=== PATIENT | female | born 1955 | race Caucasian/White ===

== ENCOUNTER → 2018-08-05 10:09 | Outpatient (CLI) | payer OTHER, MEDICAID, SELFPAY ==
[2018-08-05 10:29] LABS: Add Manual Diff / Slide Review NO; Basophils Absolute Auto 0 /uL (0-100); Basophils Percent Auto 0.5 % (0-2); Eosinophils Absolute Auto 0 /uL (0-450); Eosinophils Percent Auto 0.6 % (2-4); Lymphocytes Absolute Auto 1200 /uL (1100-4500); Lymphocytes Percent Auto 22.1 % (25-40); Mean Corpuscular HGB Conc 33.3 % (30-36); Mean Corpuscular Hemoglobin 30.4 PG (26-34); Mean Corpuscular Volume 91.3 fL (80-100); Monocytes Absolute Auto 400 /uL (0-900); Monocytes Percent Auto 7.6 % (3-14); Neutrophils Absolute Auto 3900 /uL (1500-7000); Neutrophils Percent Auto 69.2 % (50-75); Platelet Count 277 X10^3/uL (150-400); Red Blood Cell Count 4.59 X10^6/uL (4.0-5.2); Red Cell Distribution Width 13.4 % (11.6-14.8); White Blood Cell Count 5.6 X10^3/uL (4.5-11.0)
[2018-08-05 11:04] LABS: Erythrocyte Sedimentation Rate 19 MM/HR (0-20)
[2018-08-05 11:15] LABS: Uric Acid 3.5 mg/dL (2.5-6.2)
[2018-08-05 11:17] LABS: C-Reactive Protein Quant < 0.5 mg/dL (<1.0); Rheumatoid Factor < 8.6 IU/mL (<12.0)
[2018-08-07 20:00] LABS: ANA Screen, IFA Negative (Negative)
== END ==
PROVIDERS: Family Provider Family Medicine; PCP Family Medicine; Visit Provider Orthopaedic Surgery
DX: M25.562 Pain in left knee (principal)
CPT/HCPCS: 36415; 84550; 85025; 85651; 86038; 86140; 86430

== ENCOUNTER → 2018-08-24 09:46 | Outpatient (CLI) | payer OTHER, MEDICAID, SELFPAY ==
--- NOTE | 2018-08-24 | DI.NM.S_ITS ---
PROCEDURE: NM BONE SCAN WHOLE BODY RADIOPHARMACEUTICAL: 19.2 mCi Tc-99m MDP IV. INDICATIONS: Pain in left knee TECHNIQUE: Delayed whole-body scintigrams were obtained approximately 3-4 hours after intravenous injection of radiotracer. Anterior and posterior views were acquired from vertex to feet. Additional left and right oblique views of the both knees were obtained. COMPARISON: [facility], CT, CT KUB, 08/14/2016, 13:27. [facility] [place], CR, XR KNEE ARTHRITIC SERIES LT, 03/28/2013, 14:28. [facility] [place], CR, XR KNEE ARTHRITIC SERIES LT, 08/05/2018, 8:53. FINDINGS: There is photopenia in the lateral aspect of the left knee, consistent with lateral hemiarthroplasty. There is increased uptake along the prosthesis tibia interface. The comparison x-ray demonstrates lucency underneath the tibial component of the prosthesis. Mild heterogeneous uptake in skull, uncertain clinical significance. No lesions are identified sternum, clavicles, scapulae, ribs, bony pelvis, and visualized shafts of the long bones. There is low level increased uptake in cervical, thoracic and lumbar spine with distribution indistinguishable from degenerative disc and facet disease; early metastasis to spine could be obscured by degenerative changes. There are foci of increased periarticular activity involving shoulders, sternoclavicular joints, elbows, wrists and hands, hips and right foot, compatible with degenerative/arthritic changes. There is normal soft tissue uptake. IMPRESSION: 1. Lateral hemiarthroplasty of the left knee. There is increased uptake along the prosthesis tibia interface. The comparison x-ray demonstrates lucency underneath the tibial component of the prosthesis. The findings are concerning for prosthesis loosening. Dictated by: Chelsey Alicia M.D. on 08/24/2018 at 17:28 Approved by: Chelsey Alicia M.D. on 08/24/2018 at 19:02
== END ==
PROVIDERS: Family Provider Family Medicine; PCP Family Medicine; Visit Provider Orthopaedic Surgery
DX: M25.562 Pain in left knee (principal); Z96.652 Presence of left artificial knee joint
CPT/HCPCS: 78306; A9503

== ENCOUNTER → 2019-03-18 09:01 | Outpatient (CLI) | payer OTHER, MEDICAID, SELFPAY | PROVIDERS: Family Provider Family Medicine; PCP Family Medicine; Visit Provider Nurse Practitioner | DX: R30.0 Dysuria (principal) | CPT/HCPCS: 87077; 87086; 87186 ==

== ENCOUNTER 2019-04-09 05:34 | Emergency (ER) | payer OTHER, MEDICAID, SELFPAY ==
[2019-04-09 06:26] VITALS: BP 180/87; PULSE 89; RESP 18; TEMP 36.4; O2SAT 97; BMI 21.2
--- NOTE | 2019-04-09 06:27 | ED.FEMALEGU ---
HPI - Female Genitourinary General Chief complaint: Urogenital-Female Stated complaint: thinks bladder infection Time Seen by Provider: 04/09/19 05:35 Source: patient and family Mode of arrival: Ambulatory Limitations: no limitations History of Present Illness HPI Narrative: 63F smoker with frequent UTI presents with a chief complain of urinary frequency, urgency and dysuria. She denies any fever chills nor nausea or vomiting. She recently had a course of Cipro and had been better for about 2 weeks but symptoms began a few days ago. MD Complaint: dysuria Onset (ago): day(s) Female Urogenital Radiation: Suprapubic Severity: moderate Quality: Aching Urinary symptoms: Difficulty Urinating and Dysuria Patient : No Associated symptoms: denies other symptoms Related Data Home Medications Medication Instructions Recorded Confirmed acetaminophen PO 03/18/19 03/18/19 clonazepam 1 mg tablet 1 mg PO BID 03/18/19 03/18/19 cyclobenzaprine PO 03/18/19 03/18/19 omeprazole PO 03/18/19 03/18/19 Previous Rx's Medication Instructions Recorded ciprofloxacin HCl 500 mg PO BID #14 tab 04/09/19 Allergies Allergy/AdvReac Type Severity Reaction Status Date / Time morphine Allergy Intermediate hives, Verified 03/18/19 08:55 vomiting Sulfa (Sulfonamide Allergy Intermediate hives Verified 03/18/19 08:55 Antibiotics) Penicillins Allergy Unknown unkown Verified 03/18/19 08:55 Review of Systems Constitutional Constitutional: Denies chills, Denies fatigue, Denies fever(s), Denies frequent falls, Denies lethargy and Denies weakness Eyes Eyes: Denies change in vision, Denies eye discharge, Denies irritation and Denies loss of vision ENT Ears, Nose, Mouth, and Throat: Denies change in voice, Denies dizziness, Denies neck pain, Denies sore throat and Denies throat swelling Cardiovascular Cardiovascular: Denies chest pain, Denies irregular heart rhythm, Denies lightheadedness, Denies palpitations, Denies dyspnea, Denies dyspnea on exertion and Denies orthopnea Respiratory Respiratory: Denies cough, Denies dyspnea, Denies dyspnea on exertion and Denies wheezing Gastrointestinal Gastrointestinal: Denies abdominal pain, Denies change in bowel habits, Denies diarrhea, Denies nausea and Denies vomiting Genitourinary Genitourinary: Denies hematuria, Denies flank pain, Denies urinary incontinence and Reports urinary urgency Musculoskeletal Musculoskeletal: Denies back pain, Denies muscle weakness, Denies neck pain, Denies numbness and Denies tingling Integumentary/Breasts Skin/Breast: Denies pruritus, Denies erythema, Denies rash and Denies wounds Neurologic Neurologic: Denies behavioral changes, Denies confusion, Denies dizziness, Denies frequent falls, Denies loss of vision, Denies numbness, Denies tingling and Denies weakness Psychiatric Psychiatric: Denies anxiety, Denies behavioral changes, Denies confusion, Denies depression, Denies homicidal ideation and Denies suicidal ideation Endocrine Endocrine: Denies fatigue, Denies flushing and Denies palpitations Hematologic/Lymphatic Hematologic/Lymphatic: Denies easy bruising Allergic/Immunologic Allergic/Immunologic: Denies urticaria, Denies throat swelling and Denies wheezing Exam Narrative Exam Narrative: GEN: AOx3 and in mild distress EYES: Pupils are equal, round, and reactive to light and accommodation. Extraoccular muscles are intact bilaterally. There is no subconjunctival hemorrhage or exudate. CHEST: Lungs are clear to auscultation bilaterally and free of wheezes, rales, or rhonchi. Heart rate is regular rhythm, there are no murmurs, clicks, rubs, or gallops. There is no chest wall tenderness. ABD: Abdomen is soft and nontender. There is no guarding or rebound. Bowel sounds are normal in all 4 quadrants. There is no mass or organomegaly. EXT: Full painless ROM of all extremities with no loss of sensation or strength. SKIN: Warm, pink, and dry. No erythema or rash Initial Vital Signs Initial Vital Signs: Vital Signs Temperature 97.5 F L 04/09/19 06:26 Pulse Rate 89 04/09/19 06:26 Respiratory Rate 18 04/09/19 06:26 Blood Pressure 180/87 H 04/09/19 06:26 Pulse Oximetry 97 04/09/19 06:26 Course Orders Ordered: ED Orders 04/09/19 06:15 Urine Microscopic Stat Discontinued Medications Levofloxacin (Levaquin) 500 mg PO NOW ONE Stop: 04/09/19 06:38 Vital Signs Vital signs: Vital Signs - 8 hr 04/09/19 06:26 Temperature 97.5 F L Pulse Rate 89 Respiratory Rate 18 Blood Pressure 180/87 H Pulse Oximetry 97 MDM - Female Genitourinary Lab Data Labs: Urine Dip Bedside Urine Glucose Negative Bedside Urine Bilirubin - Negative Bedside Urine Ketone - Negative Urine Specific [place] 1.010 Bedside Urine Occult Blood + Bedside Urine pH 6.5 Bedside Urine Protein +/- 15 Bedside Urine Urobilinogen - Negative Bedside Urine Nitrite - Negative Bedside Urine Leukocytes +++ 500 Esterase Discharge Plan Departure Patient Disposition: Home Clinical Impression: UTI (urinary tract infection) Qualifiers: Urinary tract infection type: acute cystitis Hematuria presence: without hematuria Qualified Code(s): N30.00 - Acute cystitis without hematuria Instructions: DI for Urinary Tract Infection (UTI) Activity Restrictions/Additional Instructions: *You have been diagnosed with [acute urinary tract infection] *What to do: *Take medications as directed *Follow up with your primary care provider in 2-3 days, call for an appointment. Let them know you were seen in the Emergency Department and that we ask that you be seen in follow up *Return to ER if you should have any new, worsening or concerning symptoms, such as [ ] Prescriptions: New ciprofloxacin HCl 500 mg tablet 500 mg PO BID Qty: 14 RF: 0 No Action clonazepam 1 mg tablet 1 mg PO BID RF: 0 cyclobenzaprine PO RF: 0 omeprazole PO RF: 0 acetaminophen PO RF: 0 Referrals: Rishi Cote MD [Primary Care Provider] -
[2019-04-09 06:30] VITALS: BP 180/87; PULSE 89; RESP 18; TEMP 36.4; O2SAT 97; BMI 21.2
[2019-04-09 06:33] LABS: Bacteria Urine None Seen
[2019-04-09] MEDS: levoFLOXacin 250 MG TABLET 500 MG PO (07:03)
[2019-04-09 07:07] LABS: RBC Urine 10-30/HPF (0-5/HPF); WBC Urine 30-100/HPF (0-5/HPF)
[2019-04-09 07:08] LABS: Culture Indicated Urine Cult Not Indicated; Renal Epithelial Cells Urine 0-1/HPF (0-1/HPF); Squamous Epithelial Cell Urine 5-10 /HPF (0-5/HPF); Transitional Epi Cells Urine 1-5/HPF (0-5/HPF)
== END 2019-04-09 07:20 | disposition home or self-care (01) ==
PROVIDERS: Emergency Provider Emergency Medicine; Family Provider Family Medicine; PCP Family Medicine
DX: N30.90 Cystitis, unspecified without hematuria (principal)
CPT/HCPCS: 81003; 81015; 99282; 99283

== ENCOUNTER → 2025-01-02 09:47 | Outpatient (CLI) | payer OTHER, SELFPAY ==
--- NOTE | 2025-01-02 09:51 | DI.US.S_ITS ---
PROCEDURE: US THYROID INDICATIONS: Screening, nodule TECHNIQUE: Real-time scanning was performed of the thyroid gland, with image documentation. COMPARISON: None. FINDINGS: Thyroid: Right lobe is surgically absent.. Left lobe measures 2.7 x 1.1 x 0.8 cm. Isthmus is 0.4 cm thick. Echotexture is heterogeneous and margin is slightly lobulated. Residual thyroid tissue is highly vascular. Nodule number: 1 Location: Along the lateral margin of the left mid thyroid, probably extrathyroidal. Size: 0.6 by 0.7 x 0.5 cm. Composition: Solid Echogenicity: Mildly hypoechoic. Morphology is similar to right neck lymph nodes.. Shape: wider than tall. Margins: Smooth Echogenic foci: No Total points: Not applicable ACR TI-RADS category: Not applicable given potentially non thyroid nodule. No suspicious findings in the right thyroid bed. There are several small lateral compartment lymph nodes in the right neck. No visible lateral compartment lymph nodes in the left neck. IMPRESSION: Surgically absent right thyroid. Diminutive, heterogeneous and hypervascular left thyroid lobe. Correlate with labs to exclude thyroiditis. Probable medial compartment small lymph node immediately adjacent to the left thyroid gland as described above. Other similar size and echotexture lymph nodes are seen in the right lateral neck. ACR TI-RADS definitions and recommendations: TI-RADS 1 (benign): 0 points. FNA not needed. TI-RADS 2 (not suspicious): 2 points. FNA not needed. TI-RADS 3: 3 points. * FNA if 2.5 cm or larger, follow up if 1.5 cm or larger (at 1, 3, and 5 years). TI-RADS 4: 4-6 points. * FNA if 1.5 cm or larger, follow up if 1 cm or larger (at 1, 2, 3, and 5 years). TI-RADS 5: 7 points or more. * FNA if 1 cm or larger, follow up if 0.5 cm or larger (every year for 5 years). Dictated by: Lety Stoddard M.D. on 01/03/2025 at 12:10 Approved by: Lety Stoddard M.D. on 01/03/2025 at 12:20
--- NOTE | 2025-01-02 10:55 | DI.MG.S_ITS ---
MM screening mammo BI: 01/02/2025. BI-RADS: 1 CLINICAL: 69-year old female for bilateral screening mammogram. Tyrer-Cuzick lifetime risk of 3.0%. No personal or first-degree family history of breast cancer. Current reported family history of breast cancer: maternal grandmother. PRIOR EXAMS 09/15/2021, 10/02/2015. MAMMOGRAPHY TECHNIQUE: 2D and 3D (tomosynthesis) digital mammographic views obtained, with additional images as needed for full coverage. Current study was also evaluated with a Computer Aided Detection (CAD) system. DENSITY C. The breasts are heterogeneously dense, which may obscure small masses. MAMMOGRAPHY FINDINGS Bilateral: No suspicious mass, asymmetry, microcalcification, or other abnormality seen. IMPRESSION: * No evidence of malignancy. RECOMMENDATIONS Bilateral * Annual screening mammography. OVERALL ASSESSMENT CATEGORY BI-RADS-1: Negative. The [employer] recommends annual screening mammography beginning at age 40 for women with average risk of breast cancer. ELECTRONICALLY SIGNED: Isabel Gee M.D. on 01/02/2025 at 05:43:39 PM PT Interpreting Station ID: [id number]
--- NOTE | 2025-01-02 11:17 | DI.RAD.S_ITS ---
PROCEDURE: XR DEXA AXIAL SKELETON INDICATIONS: SCREENING COMPARISON: None. FINDINGS: Lumbar Spine: Bone mineral density 0.708 g/cm2, T score -3.1, baseline. Left Femoral Neck: Bone mineral density 0.536 g/cm2, T score -2.8. Left Hip: Bone mineral density 0.715 g/cm2, T score -1.9, baseline. Fracture Risk Calculation (when applicable): Not reported due to osteoporosis diagnosis. (T score greater or equal to -1.0 to: NORMAL) (T score from -1.1 to -2.4: OSTEOPENIA) (T score less than or equal to -2.5: OSTEOPOROSIS) IMPRESSION: Osteoporosis. Follow-up guidelines as follows: Osteoporosis: Consider a repeat DEXA and Vertebral Fracture Assessment (VFA) exam in 2 years or sooner if medically necessary, to reassess this patient's status. Osteopenia: Consider a repeat DEXA in 2-3 years to reassess this patient's status, or if there is a new clinical indication. Normal: Consider a repeat DEXA in 5 years or sooner, or if there is a new clinical indication. All treatment decisions require clinical judgment and consideration of individual patient factors, including patient preferences, comorbidities, previous drug use, risk factors not captured in the FRAX model (e.g., frailty, falls, vitamin D deficiency, increased bone turnover, interval significant decline in bone density ) and possible under- or over-estimation of fracture risk by FRAX. In addition, the NOF Guide recommends that FDA-approved medical therapies be considered in postmenopausal women and men age >= 50 years with a: * Hip or vertebral (clinical or morphometric) fracture * T-score of <=-2.5 at the spine or hip * Ten-year fracture probability by FRAX of >= 3% for hip fracture or >=20% for major osteoporotic fracture. Dictated by: Lenin Guillen M.D. on 01/02/2025 at 14:19 Approved by: Lenin Guillen M.D. on 01/02/2025 at 14:19
== END ==
PROVIDERS: Referring Provider Family Medicine; Visit Provider Family Medicine
DX: Z12.31 Encounter for screening mammogram for malignant neoplasm of breast (principal); Z13.820 Encounter for screening for osteoporosis; M81.0 Age-related osteoporosis without current pathological fracture; R92.333 Mammographic heterogeneous density, bilateral breasts; E04.1 Nontoxic single thyroid nodule; Z90.89 Acquired absence of other organs; Z98.890 Other specified postprocedural states; Z80.3 Family history of malignant neoplasm of breast
CPT/HCPCS: 76536; 77063; 77067; 77080

== ENCOUNTER → 2025-01-05 17:18 | Outpatient (CLI) | payer OTHER, SELFPAY ==
--- NOTE | 2025-01-05 17:21 | DI.RAD.S_ITS ---
PROCEDURE: XR LUMBAR SPINE MIN 4V INDICATIONS: Evaluate for OA rule out pathologic fracture with osteoporos TECHNIQUE: 5 views of the lumbar spine were acquired, including bilateral oblique views. COMPARISON: None. FINDINGS AND IMPRESSION: Vertebral body heights are well maintained. [id number] multilevel spondylosis, with facet arthropathy and disc space height loss at multiple levels. On oblique views, no definite pars defects are seen, although evaluation is limited by overlapping bowel gas. Sacroiliac and hip arthritic changes also present. Large colonic fecal and gas burden. Vascular calcifications. If there is high concern for further derangement, consider MRI evaluation. Dictated by: Dean Adhikari M.D. on 01/05/2025 at 17:55 Approved by: Dean Adhikari M.D. on 01/05/2025 at 17:56
== END ==
PROVIDERS: Referring Provider Chiropractor; Visit Provider Chiropractor
DX: M47.816 Spondylosis without myelopathy or radiculopathy, lumbar region (principal); I70.90 Unspecified atherosclerosis; G89.29 Other chronic pain; M54.50 Low back pain, unspecified
CPT/HCPCS: 72110

== ENCOUNTER 2025-01-06 11:23 | Emergency (ER) | payer OTHER, SELFPAY ==
[2025-01-06 11:27] VITALS: BP 198/90; PULSE 81; RESP 20; O2SAT 98; BMI 21.4
--- NOTE | 2025-01-06 11:35 | DI.CT.S_ITS ---
PROCEDURE: CT ABDOMEN PELVIS WO CON INDICATIONS: severe low back and BL hip pain; please comment lumbar spine TECHNIQUE: Axial sections were acquired from the lung bases to the pubic symphysis. Coronal and sagittal reformats were performed. For radiation dose reduction, the following was used: automated exposure control, adjustment of mA and/or kV according to patient size. COMPARISON: None. FINDINGS: Image quality: Diagnostic. Lower Chest: No significant findings. URINARY: Right Kidney: Punctate right renal stones. No hydronephrosis. Right Ureter: No hydroureter. Left Kidney: A few renal stones the largest measuring 4 mm. No hydronephrosis Left Ureter: No hydroureter. Bladder: Normal wall thickness. No stones. ABDOMEN: Liver: No contour-deforming solid mass. Gallbladder: The gallbladder surgically absent. Biliary ducts: No biliary dilation. Pancreas: No ductal dilation. Spleen: Size is within normal limits. Adrenal Glands: No adrenal nodules. Stomach and Bowel: Long segment wall thickening of the transverse, descending, and sigmoid colon. No evidence of obstruction. Mild surrounding inflammatory changes. Few scattered diverticula. Normal appendix. Peritoneum: No abnormal intraperitoneal fluid. No free air. Ventral Wall: No hernia. Abdominal Nodes: No enlarged retroperitoneal or mesenteric lymph nodes. Vessels: Aorta and inferior vena cava are normal in size. PELVIS: Pelvic Organs: Unremarkable. Pelvic Nodes: Unremarkable. Miscellaneous: Right fat containing inguinal hernia. Bones: Unremarkable. No bony spinal canal foraminal narrowing. canal foraminal narrowing. Unremarkable appearance of the bilateral hips IMPRESSION: 1. Normal appearance of the lumbar spine and hips. 2. Bilateral nonobstructive nephrolithiasis. 3. Long segment thickening of the colon with surrounding inflammatory changes. Correlate for colitis Dictated by: Ronald Leigh M.D. on 01/06/2025 at 11:08 Approved by: Ronald Leigh M.D. on 01/06/2025 at 11:14
--- NOTE | 2025-01-06 11:41 | ED.BACK ---
HPI - Back Pain/Injury <Alina Daniels PA-C - Last Filed: 01/06/25 14:21> General Chief Complaint: Back Pain/Injury Stated Complaint: back pain Time Seen by Provider: 01/06/25 11:34 Source: patient History of Present Illness HPI Narrative: Ms. Gamino is a pleasant 69-year-old female with a past medical history of hypertension, HTN, osteoporosis, PTSD, PUD, who presents to the emergency department for acute on chronic back pain. Patient states she has been suffering with low back pain since May of this year however just yesterday the pain became 10/10 and radiating to bilateral hips. She denies any trauma or injury but reports that she was working in her flower beds and bending, pulling weeds, etc. She went to the walk-in clinic yesterday and had x-rays performed and was treated with Flexeril, the Flexeril is starting to help slightly. She does not take any blood thinners. She denies any direct trauma to her back. Reports she occasionally has pain radiating to the lateral thighs, no numbness tingling weakness of the lower extremities. No fevers or chills. No abdominal pain or dysuria. No flank pain. No bowel or bladder incontinence. No saddle anesthesia. Related Data Home Medications ?Medication ?Instructions ?Recorded ?Confirmed acetaminophen [Tylenol 8 Hour] PO 03/18/19 06/04/19 clonazepam 1 mg tablet 1 mg PO BID 03/18/19 06/04/19 cyclobenzaprine PO 03/18/19 06/04/19 omeprazole PO 03/18/19 06/04/19 bupropion HCl 150 mg 24 hr tablet, 150 mg PO QAM 06/04/19 06/04/19 extended release lisinopril 10 mg tablet 10 mg PO DAILY 06/04/19 06/04/19 clonazepam 1 mg tablet mg PO 07/03/24 07/03/24 levothyroxine 75 mcg tablet mcg PO 07/03/24 07/03/24 mirtazapine 15 mg tablet mg PO 07/03/24 07/03/24 omeprazole 20 mg capsule,delayed mg PO 07/03/24 07/03/24 release rosuvastatin 5 mg tablet mg PO DAILY 07/03/24 07/03/24 sertraline 100 mg tablet mg PO DAILY 07/03/24 07/03/24 Previous Rx's ?Medication ?Instructions ?Recorded lidocaine 4 % topical patch 1 patch topical DAILY PRN pain #10 07/03/24 ea methocarbamol 500 mg tablet 500 mg PO TID PRN muscle spasm #20 07/03/24 tabs cyclobenzaprine 10 mg tablet 10 mg PO TID PRN muscle spasm #14 01/05/25 tabs cephalexin 500 mg capsule 500 mg PO BID 7 days #14 caps 01/06/25 oxycodone-acetaminophen 5 mg-325 1 tab PO Q4-6H PRN pain #12 tabs 01/06/25 mg tablet prednisone 20 mg tablet 40 mg (2 x 20 mg) PO DAILY 5 days 01/06/25 #10 tabs Allergies Allergy/AdvReac Type Severity Reaction Status Date / Time Iodinated Contrast Media Allergy Intermediate Verified 01/06/25 11:28 morphine Allergy Intermediate hives, Verified 01/06/25 11:28 vomiting Sulfa (Sulfonamide Allergy Intermediate hives Verified 01/06/25 11:28 Antibiotics) Penicillins Allergy Unknown unkown Verified 01/06/25 11:28 codeine AdvReac Unknown Verified 01/06/25 11:28 iodine AdvReac Unknown Verified 01/06/25 11:28 shellfish derived AdvReac Unknown Verified 01/06/25 11:28 Review of Systems <Alnia Daniels PA-C - Last Filed: 01/06/25 14:21> Review of Systems ROS Unobtainable: All systems reviewed & are unremarkable except as noted in HPI and below Patient History <Alina Daniels PA-C - Last Filed: 01/06/25 14:21> Social History Smoking Status: Current some day smoker Smoking Status: Current some day smoker tobacco type: cigarettes alcohol intake frequency: 0-2 drinks per day Exam <Alina Daniels PA-C - Last Filed: 01/06/25 14:21> Narrative Exam Narrative: GENERAL: 69 year old patient appears stated age. Well-developed patient, in no acute distress. HEAD: Atraumatic. Normocephalic. NECK: Trachea midline. Cervical ROM intact. No midline cervical tenderness. CARDIOVASCULAR: Regular rate and rhythm. RESPIRATORY: ?Nonlabored respirations. ?Speaking in clear, full sentences. ?Clear to auscultation. Breath sounds equal bilaterally. No wheezes, rales, or rhonchi. ? GASTROINTESTINAL: Abdomen soft, non-tender, nondistended. BS present. EXTREMITIES: No lower extremity edema. Sensation intact to light touch throughout the upper and lower extremities. Palpable PT pulses. BACK: No midline spinal tenderness. Subjective pain in the bilateral SI joint region and paralumbar spinal region. No midline deformities. Patient is able to ambulate independently without difficulty. Positive left-sided straight leg raise. NEURO: AOx3. ?Clear speech. ?Moves all 4 extremities appropriately. Sensation intact to light touch throughout the lower extremities including groin. SKIN: No rash or erythema of visible areas Initial Vital Signs Initial Vital Signs: Vital Signs Pulse Rate 81 01/06/25 11:27 Respiratory Rate 20 01/06/25 11:27 Blood Pressure 198/90 H 01/06/25 11:27 Pulse Oximetry 98 01/06/25 11:27 Oxygen Delivery Method Room Air 01/06/25 11:27 <Rossi Haq MD - Last Filed: 01/06/25 16:10> Initial Vital Signs Initial Vital Signs: Vital Signs Pulse Rate 81 01/06/25 11:27 Respiratory Rate 20 01/06/25 11:27 Blood Pressure 198/90 H 01/06/25 11:27 Pulse Oximetry 98 01/06/25 11:27 Oxygen Delivery Method Room Air 01/06/25 11:27 Course <Alina Daniels PA-C - Last Filed: 01/06/25 14:21> Orders Ordered: ED Orders 01/06/25 11:35 CT abdomen pelvis wo con Stat 01/06/25 12:55 Urine Culture Stat Urine Microscopic Stat Discontinued Medications Diphenhydramine HCl (Diphenhydramine 25 Mg Tablet) 50 mg PO NOW ONE Stop: 01/06/25 12:07 Last Admin: 01/06/25 12:52 Dose: 50 mg Documented By: ELIANA Lidocaine (Lidocaine 5% Patch) 1 each TOP NOW ONE Stop: 01/06/25 12:07 Last Admin: 01/06/25 12:53 Dose: 1 each Documented By: ELIANA Oxycodone/Acetaminophen (Oxycodone/Acetaminophen 5/325 Tablet) 1 tab PO NOW ONE Stop: 01/06/25 12:07 Last Admin: 01/06/25 12:52 Dose: 1 tab Documented By: ELIANA Vital Signs Vital signs: Vital Signs - 8 hr 01/06/25 11:27 01/06/25 14:01 Temperature 98.4 F Pulse Rate 81 70 Respiratory Rate 20 16 Blood Pressure 198/90 H 195/93 H Pulse Oximetry 98 96 Oxygen Delivery Method Room Air Room Air <Rossi Haq MD - Last Filed: 01/06/25 16:10> Orders Ordered: ED Orders 01/06/25 11:35 CT abdomen pelvis wo con Stat 01/06/25 12:55 Urine Culture Stat Urine Microscopic Stat Discontinued Medications Diphenhydramine HCl (Diphenhydramine 25 Mg Tablet) 50 mg PO NOW ONE Stop: 01/06/25 12:07 Last Admin: 01/06/25 12:52 Dose: 50 mg Documented By: ELIANA Lidocaine (Lidocaine 5% Patch) 1 each TOP NOW ONE Stop: 01/06/25 12:07 Last Admin: 01/06/25 12:53 Dose: 1 each Documented By: ELIANA Oxycodone/Acetaminophen (Oxycodone/Acetaminophen 5/325 Tablet) 1 tab PO NOW ONE Stop: 01/06/25 12:07 Last Admin: 01/06/25 12:52 Dose: 1 tab Documented By: ELIANA Vital Signs Vital signs: Vital Signs - 8 hr 01/06/25 11:27 01/06/25 14:01 Temperature 98.4 F Pulse Rate 81 70 Respiratory Rate 20 16 Blood Pressure 198/90 H 195/93 H Pulse Oximetry 98 96 Oxygen Delivery Method Room Air Room Air MDM - Back Pain/Injury <Alina Daniels PA-C - Last Filed: 01/06/25 14:21> Medical Records Attestation: I reviewed the patient's medical records. Lab Data Labs: Lab Results 01/06/25 Range/Units 12:55 Urine RBC 0-1/hpf D (0-5/HPF) Urine WBC 1-5/hpf (0-5/HPF) Ur Squamous Epith Cells None seen (0-5/HPF) Ur Transition Epith Cell 0-1/hpf (0-5/HPF) Urine Bacteria None seen (None) Urine Mucus 1+ H (Negative) Ur Culture Indicated? Specimen cultured Micro UA Comment Vol Urine Centrifuged 10ml (spun) Urine Dip Bedside Urine Glucose Negative Bedside Urine Bilirubin - Negative Bedside Urine Ketone - Negative Urine Specific [place] 1.010 Bedside Urine Occult Blood + Bedside Urine pH 6.5 Bedside Urine Protein - Negative Bedside Urine Urobilinogen - Negative Bedside Urine Nitrite - Negative Bedside Urine Leukocytes ++ [address] scan - abdomen/pelvis: Radiologist's Impression: PROCEDURE: CT ABDOMEN PELVIS WO CON INDICATIONS: severe low back and BL hip pain; please comment lumbar spine TECHNIQUE: Axial sections were acquired from the lung bases to the pubic symphysis. Coronal and sagittal reformats were performed. For radiation dose reduction, the following was used: automated exposure control, adjustment of mA and/or kV according to patient size. COMPARISON: None. FINDINGS: Image quality: Diagnostic. Lower Chest: No significant findings. URINARY: Right Kidney: Punctate right renal stones. No hydronephrosis. Right Ureter: No hydroureter. Left Kidney: A few renal stones the largest measuring 4 mm. No hydronephrosis Left Ureter: No hydroureter. Bladder: Normal wall thickness. No stones. ABDOMEN: Liver: No contour-deforming solid mass. Gallbladder: The gallbladder surgically absent. Biliary ducts: No biliary dilation. Pancreas: No ductal dilation. Spleen: Size is within normal limits. Adrenal Glands: No adrenal nodules. Stomach and Bowel: Long segment wall thickening of the transverse, descending, and sigmoid colon. No evidence of obstruction. Mild surrounding inflammatory changes. Few scattered diverticula. Normal appendix. Peritoneum: No abnormal intraperitoneal fluid. No free air. Ventral Wall: No hernia. Abdominal Nodes: No enlarged retroperitoneal or mesenteric lymph nodes. Vessels: Aorta and inferior vena cava are normal in size. PELVIS: Pelvic Organs: Unremarkable. Pelvic Nodes: Unremarkable. Miscellaneous: Right fat containing inguinal hernia. Bones: Unremarkable. No bony spinal canal foraminal narrowing. canal foraminal narrowing. Unremarkable appearance of the bilateral hips IMPRESSION: 1. Normal appearance of the lumbar spine and hips. 2. Bilateral nonobstructive nephrolithiasis. 3. Long segment thickening of the colon with surrounding inflammatory changes. Correlate for colitis Dictated by: Ronald Leigh M.D. on 01/06/2025 at 11:08 Approved by: Ronald Leigh M.D. on 01/06/2025 at 11:14 [facility] Narrative Medical decision making narrative: 69-year-old female with a past medical history of hypertension, HTN, osteoporosis, PTSD, PUD, who presents to the emergency department for acute on chronic back pain. Differential diagnosis includes is not limited to acute on chronic pain, lumbar spondylosis, arthritis, UTI, stenosis, etc. On exam patient is in no acute distress, nontoxic appearing, vital signs within normal limits except for elevated blood pressure, patient states that she does have white coat hypertension. She is having pain across the lumbar spine spreading into the hips. Positive left-sided straight leg raise. Lower extremities are neurovascularly intact, no bowel or bladder incontinence, no saddle anesthesia, no direct trauma, no fevers. After shared decision-making with the attending physician, we will obtain CT abdomen and pelvis without contrast. Patient reports that she can not have NSAIDs, Tylenol is not working, she is allergic to morphine but she can tolerate oxycodone/hydrocodone with 2 Benadryl. We will treat with that regimen in addition to Lidoderm. She would like to hold off on steroids for now. CT reveals normal appearance of lumbar spine and hips, bilateral nonobstructive nephrolithiasis, and long segment thickening of the colon with surrounding inflammatory changes, correlate for colitis. Urinalysis reveals small amount of WBCs. Specimen was cultured, patient denies current symptoms would feel most comfortable with script of antibiotics going to her pharmacy incase culture is positive because she does have a history of recurrent UTIs. At this time she has not experiencing any abdominal pain, tenderness, abnormal bowel movements painful bowel movements fevers chills or flu-like symptoms. Do not suspect bacterial colitis however given inflammation we will treat with prednisone for both possible lumbar radiculopathy in addition to the colitis. Recommended supportive care including Tylenol, heat therapy, gentle movement in addition I did send a short course of oxycodone-acetaminophen to her pharmacy, we discussed risks of narcotics and I recommended using a stool softener. Discussed follow up with primary care doctor for further evaluation and management of low back pain including but not limited to physical therapy, referral to spine surgery, etc.. Discussed strict ED return precautions. Patient and her daughter verbalized understanding of all information or happy with this plan. She is ambulatory and stable for discharge home, pain improved. I did also discuss with the patient her daughter the importance of daily blood pressure monitoring given her elevated blood pressure today, and follow up with PCP for blood pressure recheck. She is asymptomatic at this time. <Rossi Haq MD - Last Filed: 01/06/25 16:10> Lab Data Labs: Lab Results 01/06/25 Range/Units 12:55 Urine RBC 0-1/hpf D (0-5/HPF) Urine WBC 1-5/hpf (0-5/HPF) Ur Squamous Epith Cells None seen (0-5/HPF) Ur Transition Epith Cell 0-1/hpf (0-5/HPF) Urine Bacteria None seen (None) Urine Mucus 1+ H (Negative) Ur Culture Indicated? Specimen cultured Micro UA Comment Vol Urine Centrifuged 10ml (spun) Urine Dip Bedside Urine Glucose Negative Bedside Urine Bilirubin - Negative Bedside Urine Ketone - Negative Urine Specific [place] 1.010 Bedside Urine Occult Blood + Bedside Urine pH 6.5 Bedside Urine Protein - Negative Bedside Urine Urobilinogen - Negative Bedside Urine Nitrite - Negative Bedside Urine Leukocytes ++ 125 Esterase Discharge Plan Departure Patient Disposition: Home Clinical Impression: Lumbar spondylosis, Arthritis of sacroiliac joint, Bilateral hip joint arthritis, Colitis Instructions: DI for Low Back Pain, DI for Colitis Activity Restrictions/Additional Instructions: Dear Hanny, Thank you for coming to the emergency department. Today you were evaluated for low back pain radiating into the hips. We discussed her x-ray from yesterday which revealed multiple areas of arthritis and degenerative changes. Your CT scan today also revealed some inflammation of your colon. Your urine test did reveal some possible early signs of infection, urine culture has been sent and you will be called with those results if they are positive. In the meantime, you have been prescribed a course of antibiotics. Prednisone as a steroid to help reduce inflammation in both your back and also your colon. Please take this medication with breakfast. You have also been prescribed oxycodone-acetaminophen which is an opiate pain medication. Please be aware that this medication can cause multiple side effects including constipation so I would like you to take MiraLax or another stool softener while using this pain medicine. Please rest, perform light movement and avoid strenuous exercise, use heat therapy and Tylenol to help with your low back. You have been prescribed a short course of narcotic medications. These are potentially dangerous and addictive medications that should be used carefully. While on these medications you cannot drive or operate heavy machinery. Additionally, you cannot sign legal documents or perform any duties such as this. Many people get constipated on narcotic medications so it would be advisable to discuss stool softeners with the pharmacist when you strip picker your prescription. Please understand that we cannot provide further refills of narcotics or controlled substances through the ED and your pain management will need to be through your Primary Care Provider Please follow up with your primary care doctor within the next 2-3 days for ER follow-up. (If you do not have a PCP you can call [phone]. ?to schedule an appointment with an [facility] Primary Care Provider) IF YOU DEVELOP ANY NEW OR WORSENING SYMPTOMS, RETURN TO THE ER! Please read the attached instructions, they highlight more specific treatments and interventions for you at home. Thank you for letting me participate in your care, Alina Daniels PA-C Prescriptions: New prednisone 20 mg tablet 40 mg PO DAILY 5 Days Qty: 10 0RF oxycodone-acetaminophen 5-325 mg tablet 1 tab PO Q4-6H PRN (Reason: pain) Qty: 12 0RF cephalexin 500 mg capsule 500 mg PO BID 7 Days Qty: 14 0RF No Action lisinopril 10 mg tablet 10 mg PO DAILY bupropion HCl 150 mg tablet extended release 24 hr 150 mg PO QAM cyclobenzaprine 10 mg tablet 10 mg PO TID PRN (Reason: muscle spasm) Qty: 14 0RF clonazepam 1 mg tablet 1 mg PO BID cyclobenzaprine PO omeprazole PO acetaminophen [Tylenol 8 Hour] PO omeprazole 20 mg capsule,delayed release(DR/EC) PO clonazepam 1 mg tablet PO Patient Comments: [NO ORIGINAL SIG] rosuvastatin 5 mg tablet PO DAILY levothyroxine 75 mcg tablet PO Patient Comments: [NO ORIGINAL SIG] mirtazapine 15 mg tablet PO Patient Comments: [NO ORIGINAL SIG] sertraline 100 mg tablet PO DAILY methocarbamol 500 mg tablet 500 mg PO TID PRN (Reason: muscle spasm) Qty: 20 0RF lidocaine 4 % adhesive patch,medicated 1 patch topical DAILY PRN (Reason: pain) Qty: 10 0RF Referrals: Miscellaneous,Doctor, [Primary Care Provider, Medical] Stand Alone Forms: Patient Portal/API ED Sign-out <Rossi Haq MD - Last Filed: 01/06/25 16:10> Cosign ED Attending Cosjlature Attestation: I was immediately available in the department for consultation throughout this patient's visit. Rossi Haq MD
[2025-01-06] MEDS: diphenhydrAMINE 25 MG TABLET 50 MG PO (12:52)
[2025-01-06] MEDS: OXYCODONE/ACETAMINOPHEN 5/325 TABLET 1 TAB PO (12:52)
[2025-01-06] MEDS: LIDOCAINE 5% PATCH 1 EACH TOP (12:53)
[2025-01-06 13:31] LABS: Culture Indicated Urine Specimen Cultured
[2025-01-06 14:01] VITALS: BP 195/93; PULSE 70; RESP 16; TEMP 36.9; O2SAT 96
== END 2025-01-06 14:05 | disposition home or self-care (01) ==
PROVIDERS: Emergency Provider Physician Assistant
DX: M47.816 Spondylosis without myelopathy or radiculopathy, lumbar region (principal); K52.9 Noninfective gastroenteritis and colitis, unspecified; M16.0 Bilateral primary osteoarthritis of hip; M46.1 Sacroiliitis, not elsewhere classified
CPT/HCPCS: 74176; 81003; 81015; 87086; 99283; 99284

== ENCOUNTER → 2025-03-14 08:18 | Outpatient (CLI) | payer OTHER, SELFPAY ==
[2025-03-14 09:09] LABS: Influenza A - CEPHEID Flu A NEGATIVE (NEGATIVE); Influenza B - CEPHEID Flu B NEGATIVE (NEGATIVE)
[2025-03-14 09:10] LABS: COVID-19 CEPHEID 4-PLEX PCR Negative (Negative)
== END ==
PROVIDERS: Visit Provider Nurse Practitioner Family
DX: J02.9 Acute pharyngitis, unspecified (principal)
CPT/HCPCS: 87637

== ENCOUNTER → 2025-03-14 08:36 | Outpatient (CLI) | payer OTHER, SELFPAY ==
--- NOTE | 2025-03-14 08:37 | DI.RAD.S_ITS ---
PROCEDURE: XR CHEST 2V INDICATIONS: Cough TECHNIQUE: 2 views of the chest were acquired. COMPARISON: None. FINDINGS: Extensive costochondral calcifications partially limit radiographic detail of the lungs. Mild bilateral perihilar and lower lobe peribronchial thickening, some of which may be related expiratory result; however, bronchitis, viral infection, asthma or other process should be considered. Tear cardiopericardial silhouette and pulmonary vasculature within normal limits. No pneumothorax, no pleural effusion, no lobar consolidation. IMPRESSION: Peribronchial thickening as discussed above. If symptoms persist or worsen, or there is high clinical suspicion of thoracic abnormality, CT chest could be performed. Dictated by: Ch[place] Ang M.D. on 03/14/2025 at 9:19 Approved by: Ch[place] Ang M.D. on 03/14/2025 at 9:21
== END ==
PROVIDERS: PCP Family Medicine; Referring Provider Family Medicine; Visit Provider Nurse Practitioner Family
DX: R05.9 Cough, unspecified (principal); J02.9 Acute pharyngitis, unspecified
CPT/HCPCS: 71046; 87637